=== PATIENT | male | born 1945 | race Native Hawaiian/Other Pacific Islander ===

== ENCOUNTER 2016-05-22 08:02 | Outpatient (CLI) | payer OTHER, MEDICARE ==
[~2016-05-22 08:02] MED LIST: COZAAR100 MG PO; LEVO0.0529 PO; LEVO0.0723 PO; MELOXICAM7.5 MG OR
[2016-05-22 08:12] LABS: PLATELET COUNT 40 K/uL (142-355)
== END 2016-05-22 22:56 | disposition home or self-care (01) ==
LOC: LABW 08:02
PROVIDERS: Internal Medicine Hematology & Oncology
DX: D69.3 Immune thrombocytopenic purpura (principal)
CPT/HCPCS: 36415; 85027

== ENCOUNTER 2016-06-06 07:42 | Outpatient (CLI) | payer OTHER, MEDICARE ==
[2016-06-06 08:00] LABS: PLATELET COUNT 44 K/uL (142-355)
== END 2016-06-06 20:02 | disposition home or self-care (01) ==
LOC: LABW 07:42
PROVIDERS: Internal Medicine Hematology & Oncology
DX: D69.3 Immune thrombocytopenic purpura (principal)
CPT/HCPCS: 36415; 85027

== ENCOUNTER 2016-06-27 08:20 | Outpatient (CLI) | payer OTHER, MEDICARE ==
[2016-06-27 08:42] LABS: PLATELET COUNT 45 K/uL (142-355)
== END 2016-06-27 18:58 | disposition home or self-care (01) ==
LOC: LABW 08:20
PROVIDERS: Internal Medicine Hematology & Oncology
DX: D69.3 Immune thrombocytopenic purpura (principal)
CPT/HCPCS: 36415; 85027

== ENCOUNTER 2016-06-30 17:39 | Emergency (ER) | payer OTHER, MEDICARE ==
[~2016-06-30] VITALS: Ht 177.8 cm; Wt 83.5 kg
[2016-06-30 18:20] VITALS: BP 131/70; TEMP 102.9
[2016-06-30 18:45] LABS: PLATELET COUNT 36 K/uL (142-355)
[2016-06-30 18:55] LABS: POTASSIUM 4.1 mmol/L (3.6-5.2); SODIUM 134 mmol/L (136-145)
== END 2016-06-30 19:02 | disposition home or self-care (01) ==
LOC: ED 17:39
DX: J02.0 Streptococcal pharyngitis (principal)
CPT/HCPCS: 80053; 85027; 87804; 87880; 99283; J0561

== ENCOUNTER 2016-08-09 07:38 | Outpatient (CLI) | payer OTHER, MEDICARE ==
[2016-08-09 08:02] LABS: PLATELET COUNT 44 K/uL (142-355)
[2016-08-09 08:39] LABS: POTASSIUM 4.1 mmol/L (3.6-5.2); SODIUM 135 mmol/L (136-145)
== END 2016-08-09 19:01 | disposition home or self-care (01) ==
LOC: LABW 07:38
PROVIDERS: Internal Medicine Hematology & Oncology
DX: E03.8 Other specified hypothyroidism (principal); I10 Essential (primary) hypertension; Z12.5 Encounter for screening for malignant neoplasm of prostate; D69.3 Immune thrombocytopenic purpura
CPT/HCPCS: 36415; 80053; 80061; 81000; 84153; 84439; 84443; 85027

== ENCOUNTER 2016-08-15 08:59 | Outpatient (CLI) | payer OTHER, MEDICARE | END 2016-08-15 19:04 | disposition home or self-care (01) | LOC: US 08:59 | DX: Z13.6 Encounter for screening for cardiovascular disorders (principal); E03.8 Other specified hypothyroidism ==

== ENCOUNTER 2016-09-27 13:31 | Outpatient (CLI) | payer OTHER, MEDICARE ==
[2016-09-27 14:31] LABS: PLATELET COUNT 38 K/uL (142-355)
== END 2016-09-27 19:50 | disposition home or self-care (01) ==
LOC: LABW 13:31
PROVIDERS: Internal Medicine Hematology & Oncology
DX: D69.3 Immune thrombocytopenic purpura (principal)
CPT/HCPCS: 36415; 85027

== ENCOUNTER 2016-10-22 07:33 | Outpatient (CLI) | payer OTHER, MEDICARE ==
[2016-10-22 07:55] LABS: PLATELET COUNT 46 K/uL (142-355)
== END 2016-10-22 19:09 | disposition home or self-care (01) ==
LOC: LABW 07:33
PROVIDERS: Internal Medicine Hematology & Oncology
DX: D69.3 Immune thrombocytopenic purpura (principal)
CPT/HCPCS: 36415; 85027

== ENCOUNTER 2016-11-22 07:51 | Outpatient (CLI) | payer OTHER, MEDICARE ==
[2016-11-22 09:32] LABS: PLATELET COUNT 28 K/uL (142-355)
== END 2016-11-22 19:13 | disposition home or self-care (01) ==
LOC: LABW 07:51
PROVIDERS: Internal Medicine Hematology & Oncology
DX: D69.3 Immune thrombocytopenic purpura (principal)
CPT/HCPCS: 36415; 85007; 85027

== ENCOUNTER 2016-12-25 07:50 | Outpatient (CLI) | payer OTHER, MEDICARE ==
[2016-12-25 08:25] LABS: PLATELET COUNT 109 K/uL (142-355)
== END 2016-12-25 19:00 | disposition home or self-care (01) ==
LOC: LABW 07:50
PROVIDERS: Internal Medicine Hematology & Oncology
DX: D69.3 Immune thrombocytopenic purpura (principal)
CPT/HCPCS: 36415; 85027

== ENCOUNTER 2017-01-23 07:43 | Outpatient (CLI) | payer OTHER, MEDICARE ==
[2017-01-23 07:55] LABS: PLATELET COUNT 132 K/uL (142-355)
== END 2017-01-23 08:45 | disposition home or self-care (01) ==
LOC: LABW 07:43
PROVIDERS: Internal Medicine Hematology & Oncology
DX: D69.3 Immune thrombocytopenic purpura (principal)
CPT/HCPCS: 36415; 85027

== ENCOUNTER 2017-01-25 07:44 | Outpatient (CLI) | payer OTHER, MEDICARE ==
[2017-01-25 08:05] LABS: POTASSIUM 3.9 mmol/L (3.6-5.2); SODIUM 135 mmol/L (136-145)
== END 2017-01-25 19:07 | disposition home or self-care (01) ==
LOC: LABW 07:44
PROVIDERS: Internal Medicine Hematology & Oncology
DX: D69.3 Immune thrombocytopenic purpura (principal)
CPT/HCPCS: 36415; 80053

== ENCOUNTER 2017-03-25 07:40 | Outpatient (CLI) | payer OTHER, MEDICARE ==
[2017-03-25 07:59] LABS: PLATELET COUNT 122 K/uL (142-355)
[2017-03-25 08:04] LABS: POTASSIUM 3.9 mmol/L (3.6-5.2); SODIUM 136 mmol/L (136-145)
== END 2017-03-25 19:02 | disposition home or self-care (01) ==
LOC: LABW 07:40
PROVIDERS: Internal Medicine Hematology & Oncology
DX: D69.3 Immune thrombocytopenic purpura (principal)
CPT/HCPCS: 36415; 80053; 85027

== ENCOUNTER 2017-04-15 07:52 | Outpatient (CLI) | payer OTHER, MEDICARE ==
[2017-04-15 08:44] LABS: PLATELET COUNT 80 K/uL (142-355)
== END 2017-04-15 19:12 | disposition home or self-care (01) ==
LOC: LABW 07:52
PROVIDERS: Internal Medicine Hematology & Oncology
DX: D69.3 Immune thrombocytopenic purpura (principal)
CPT/HCPCS: 36415; 85027

== ENCOUNTER 2017-05-08 11:35 | Outpatient (CLI) | payer OTHER, MEDICARE ==
[2017-05-08 11:49] LABS: PLATELET COUNT 146 K/uL (142-355)
== END 2017-05-08 21:34 | disposition home or self-care (01) ==
LOC: LABW 11:35
PROVIDERS: Internal Medicine Hematology & Oncology
DX: D69.3 Immune thrombocytopenic purpura (principal)
CPT/HCPCS: 36415; 85027

== ENCOUNTER 2017-05-24 07:55 | Outpatient (CLI) | payer OTHER, MEDICARE ==
[2017-05-24 08:23] LABS: PLATELET COUNT 40 K/uL (142-355)
== END 2017-05-24 19:27 | disposition home or self-care (01) ==
LOC: LABW 07:55
PROVIDERS: Internal Medicine Hematology & Oncology
DX: D69.3 Immune thrombocytopenic purpura (principal)
CPT/HCPCS: 36415; 85027

== ENCOUNTER 2017-05-31 12:15 | Outpatient (CLI) | payer OTHER, MEDICARE ==
[2017-05-31 12:50] LABS: PLATELET COUNT 54 K/uL (142-355)
== END 2017-05-31 21:53 | disposition home or self-care (01) ==
LOC: LABW 12:15
PROVIDERS: Internal Medicine Hematology & Oncology
DX: D69.3 Immune thrombocytopenic purpura (principal)
CPT/HCPCS: 36415; 85027

== ENCOUNTER 2017-06-25 07:46 | Outpatient (CLI) | payer OTHER, MEDICARE ==
[2017-06-25 08:13] LABS: PLATELET COUNT 130 K/uL (142-355)
== END 2017-06-25 19:45 | disposition home or self-care (01) ==
LOC: LABW 07:46
PROVIDERS: Internal Medicine Hematology & Oncology
DX: D69.3 Immune thrombocytopenic purpura (principal)
CPT/HCPCS: 36415; 85027

== ENCOUNTER 2017-07-24 15:41 | Outpatient (CLI) | payer OTHER, MEDICARE ==
[2017-07-24 15:51] LABS: PLATELET COUNT 83 K/uL (142-355)
== END 2017-07-24 19:36 | disposition home or self-care (01) ==
LOC: LABW 15:41
PROVIDERS: Internal Medicine Hematology & Oncology
DX: D69.3 Immune thrombocytopenic purpura (principal)
CPT/HCPCS: 36415; 85027

== ENCOUNTER 2017-08-28 08:17 | Outpatient (CLI) | payer OTHER, MEDICARE ==
[2017-08-28 09:14] LABS: PLATELET COUNT 64 K/uL (142-355)
== END 2017-08-28 21:46 | disposition home or self-care (01) ==
LOC: LABW 08:17
PROVIDERS: Internal Medicine Hematology & Oncology
DX: D69.3 Immune thrombocytopenic purpura (principal)
CPT/HCPCS: 36415; 85027

== ENCOUNTER 2017-09-23 08:18 | Outpatient (CLI) | payer OTHER, MEDICARE ==
[2017-09-23 08:27] LABS: PLATELET COUNT 49 K/uL (142-355)
== END 2017-09-23 19:56 | disposition home or self-care (01) ==
LOC: LABW 08:18
PROVIDERS: Internal Medicine Hematology & Oncology
DX: D69.3 Immune thrombocytopenic purpura (principal)
CPT/HCPCS: 36415; 85027

== ENCOUNTER 2017-10-23 15:44 | Outpatient (CLI) | payer OTHER, MEDICARE ==
[2017-10-23 15:56] LABS: PLATELET COUNT 121 K/uL (142-355)
== END 2017-10-23 20:26 | disposition home or self-care (01) ==
LOC: LABW 15:44
PROVIDERS: Nurse Practitioner Family
DX: D69.3 Immune thrombocytopenic purpura (principal)
CPT/HCPCS: 36415; 85027

== ENCOUNTER 2017-11-14 07:36 | Outpatient (CLI) | payer OTHER, MEDICARE ==
[2017-11-14 08:23] LABS: PLATELET COUNT 160 K/uL (142-355)
== END 2017-11-14 21:14 | disposition home or self-care (01) ==
LOC: LABW 07:36
PROVIDERS: Internal Medicine
DX: I10 Essential (primary) hypertension (principal); Z12.5 Encounter for screening for malignant neoplasm of prostate
CPT/HCPCS: 36415; 80053; 80061; 81000; 84153; 84443; 85027

== ENCOUNTER 2017-12-23 07:58 | Outpatient (CLI) | payer OTHER, MEDICARE ==
[2017-12-23 08:12] LABS: PLATELET COUNT 50 K/uL (142-355)
== END 2017-12-23 19:11 | disposition home or self-care (01) ==
LOC: LABW 07:58
PROVIDERS: Internal Medicine Hematology & Oncology
DX: D69.3 Immune thrombocytopenic purpura (principal)
CPT/HCPCS: 36415; 85027

== ENCOUNTER 2018-03-25 08:01 | Outpatient (CLI) | payer OTHER, MEDICARE ==
[2018-03-25 08:14] LABS: PLATELET COUNT 64 K/uL (142-355)
[2018-03-25 08:25] LABS: POTASSIUM 3.8 mmol/L (3.6-5.2)
== END 2018-03-25 22:20 | disposition home or self-care (01) ==
LOC: LABW 08:01
PROVIDERS: Nurse Practitioner Family
DX: D69.3 Immune thrombocytopenic purpura (principal)
CPT/HCPCS: 36415; 80053; 85027

== ENCOUNTER 2018-05-27 07:57 | Outpatient (CLI) | payer OTHER, MEDICARE ==
[2018-05-27 08:19] LABS: PLATELET COUNT 65 K/uL (142-355)
== END 2018-05-27 20:58 | disposition home or self-care (01) ==
LOC: LABW 07:57
PROVIDERS: Nurse Practitioner Family
DX: D69.3 Immune thrombocytopenic purpura (principal)
CPT/HCPCS: 36415; 85027

== ENCOUNTER 2018-06-26 07:47 | Outpatient (CLI) | payer OTHER, MEDICARE ==
[2018-06-26 08:07] LABS: PLATELET COUNT 60 K/uL (142-355)
== END 2018-06-26 20:19 | disposition home or self-care (01) ==
LOC: LABW 07:47
PROVIDERS: Nurse Practitioner Family
DX: D69.3 Immune thrombocytopenic purpura (principal)
CPT/HCPCS: 36415; 80053; 85027

== ENCOUNTER 2018-08-12 08:05 | Outpatient (CLI) | payer OTHER, MEDICARE ==
[2018-08-12 08:32] LABS: PLATELET COUNT 60 K/uL (142-355)
== END 2018-08-12 23:17 | disposition home or self-care (01) ==
LOC: LABW 08:05
PROVIDERS: Internal Medicine Medical Oncology
DX: D69.3 Immune thrombocytopenic purpura (principal)
CPT/HCPCS: 36415; 85027

== ENCOUNTER 2018-09-29 10:25 | Outpatient (CLI) | payer OTHER, MEDICARE ==
[2018-09-29 10:42] LABS: PLATELET COUNT 66 K/uL (142-355)
== END 2018-09-29 22:21 | disposition home or self-care (01) ==
LOC: LABW 10:25
PROVIDERS: Internal Medicine Medical Oncology
DX: D69.3 Immune thrombocytopenic purpura (principal)
CPT/HCPCS: 36415; 80053; 85027

== ENCOUNTER 2018-11-25 07:54 | Outpatient (CLI) | payer OTHER, MEDICARE ==
[2018-11-25 08:13] LABS: PLATELET COUNT 51 K/uL (142-355)
[2018-11-25 09:31] LABS: POTASSIUM 4.3 mmol/L (3.6-5.2)
== END 2018-11-25 22:24 | disposition home or self-care (01) ==
LOC: LABW 07:54
PROVIDERS: Internal Medicine
DX: I10 Essential (primary) hypertension (principal); E03.8 Other specified hypothyroidism; Z12.5 Encounter for screening for malignant neoplasm of prostate
CPT/HCPCS: 36415; 80053; 80061; 81000; 84153; 84439; 84443; 85027

== ENCOUNTER 2019-01-01 08:10 | Outpatient (CLI) | payer OTHER, MEDICARE ==
[2019-01-01 08:28] LABS: PLATELET COUNT 33 K/uL (142-355)
== END 2019-01-01 22:33 | disposition home or self-care (01) ==
LOC: LABW 08:10
PROVIDERS: Internal Medicine Medical Oncology
DX: D69.3 Immune thrombocytopenic purpura (principal)
CPT/HCPCS: 36415; 80053; 85027

== ENCOUNTER 2019-01-08 07:48 | Outpatient (CLI) | payer OTHER, MEDICARE ==
[2019-01-08 08:19] LABS: PLATELET COUNT 67 K/uL (142-355)
== END 2019-01-08 23:18 | disposition home or self-care (01) ==
LOC: LABW 07:48
PROVIDERS: Internal Medicine Medical Oncology
DX: D69.3 Immune thrombocytopenic purpura (principal)
CPT/HCPCS: 36415; 85027

== ENCOUNTER 2019-01-20 12:26 | Emergency (ER) | payer OTHER, MEDICARE ==
[~2019-01-20] VITALS: Ht 177.8 cm; Wt 79.5 kg
[2019-01-20 12:32] VITALS: TEMP 98.9
[2019-01-20 16:35] VITALS: BP 140/87
== END 2019-01-20 16:39 | disposition home or self-care (01) ==
LOC: ED 12:26
PROC: 0HQ0XZZ Repair Scalp Skin, External Approach (ICD-10-PCS; principal; 2019-01-20)
DX: S01.81XA Laceration without foreign body of other part of head, initial encounter (principal); S00.83XA Contusion of other part of head, initial encounter; R51 Headache; W11.XXXA Fall on and from ladder, initial encounter; Y92.89 Other specified places as the place of occurrence of the external cause
CPT/HCPCS: 99283

== ENCOUNTER 2019-01-29 09:49 | Emergency (ER) | payer OTHER, MEDICARE ==
[~2019-01-29] VITALS: Ht 177.8 cm; Wt 81.6 kg
[2019-01-29 10:55] VITALS: BP 117/72; TEMP 97.8
== END 2019-01-29 10:55 | disposition home or self-care (01) ==
LOC: ED 09:49
DX: Z48.02 Encounter for removal of sutures (principal)

== ENCOUNTER 2019-02-24 07:55 | Outpatient (CLI) | payer OTHER, MEDICARE ==
[2019-02-24 08:23] LABS: PLATELET COUNT 45 K/uL (142-355)
[2019-02-24 08:24] LABS: POTASSIUM 4.2 mmol/L (3.6-5.2)
== END 2019-02-24 18:57 | disposition home or self-care (01) ==
LOC: LABW 07:55
PROVIDERS: Internal Medicine Medical Oncology
DX: D69.3 Immune thrombocytopenic purpura (principal)
CPT/HCPCS: 36415; 80053; 85027

== ENCOUNTER 2019-05-05 07:41 | Outpatient (CLI) | payer OTHER, MEDICARE ==
[2019-05-05 08:24] LABS: PLATELET COUNT 58 K/uL (142-355)
== END 2019-05-05 20:07 | disposition home or self-care (01) ==
LOC: LABW 07:41
PROVIDERS: Internal Medicine Medical Oncology
DX: D69.3 Immune thrombocytopenic purpura (principal)
CPT/HCPCS: 36415; 85027

== ENCOUNTER 2019-06-29 07:33 | Outpatient (CLI) | payer OTHER, MEDICARE ==
[2019-06-29 08:19] LABS: PLATELET COUNT 49 K/uL (142-355)
[2019-06-29 08:29] LABS: POTASSIUM 4.1 mmol/L (3.6-5.2)
== END 2019-06-29 19:49 | disposition home or self-care (01) ==
LOC: LABW 07:33
PROVIDERS: Internal Medicine Medical Oncology
DX: D69.3 Immune thrombocytopenic purpura (principal)
CPT/HCPCS: 36415; 80053; 85027

== ENCOUNTER 2019-10-02 08:48 | Outpatient (CLI) | payer OTHER, MEDICARE ==
[2019-10-02 10:03] LABS: PLATELET COUNT 57 K/uL (142-355)
== END 2019-10-02 19:19 | disposition home or self-care (01) ==
LOC: LABW 08:48
PROVIDERS: Internal Medicine Medical Oncology
DX: D69.3 Immune thrombocytopenic purpura (principal)
CPT/HCPCS: 36415; 85027

== ENCOUNTER 2019-12-28 07:43 | Outpatient (CLI) | payer OTHER, MEDICARE ==
[2019-12-28 08:21] LABS: PLATELET COUNT 81 K/uL (142-355)
== END 2019-12-28 19:06 | disposition home or self-care (01) ==
LOC: LABW 07:43
PROVIDERS: Internal Medicine Medical Oncology
DX: D69.3 Immune thrombocytopenic purpura (principal)
CPT/HCPCS: 36415; 80053; 85027

== ENCOUNTER 2020-03-21 07:46 | Outpatient (CLI) | payer OTHER, MEDICARE ==
[2020-03-21 08:05] LABS: PLATELET COUNT 75 K/uL (142-355)
== END 2020-03-21 23:09 | disposition home or self-care (01) ==
LOC: LABW 07:46
PROVIDERS: ATTEND Nurse Practitioner Adult Health
DX: D69.3 Immune thrombocytopenic purpura (principal)
CPT/HCPCS: 36415; 85027

== ENCOUNTER 2020-05-09 13:32 | Outpatient (CLI) | payer OTHER, MEDICARE | END 2020-05-09 21:11 | disposition home or self-care (01) | LOC: LAB 13:32 | PROVIDERS: ATTEND Internal Medicine | DX: R05 Cough (principal) ==

== ENCOUNTER 2020-07-08 08:11 | Outpatient (CLI) | payer OTHER, MEDICARE ==
[2020-07-08 08:38] LABS: PLATELET COUNT 39 K/uL (142-355)
[2020-07-08 08:43] LABS: POTASSIUM 4.3 mmol/L (3.6-5.2)
== END 2020-07-08 21:11 | disposition home or self-care (01) ==
LOC: LABW 08:11
PROVIDERS: ATTEND Nurse Practitioner Adult Health
DX: D69.3 Immune thrombocytopenic purpura (principal)
CPT/HCPCS: 36415; 80053; 85027

== ENCOUNTER 2021-01-09 11:06 | Outpatient (CLI) | payer OTHER, MEDICARE ==
[2021-01-09 11:44] LABS: PLATELET COUNT 59 K/uL (142-355)
== END 2021-01-09 18:56 | disposition home or self-care (01) ==
LOC: LABW 11:06
PROVIDERS: ATTEND Nurse Practitioner Adult Health
DX: D69.3 Immune thrombocytopenic purpura (principal)
CPT/HCPCS: 36415; 80053; 85027

== ENCOUNTER 2021-02-15 07:53 | Outpatient (CLI) | payer OTHER, MEDICARE ==
[2021-02-15 08:22] LABS: PLATELET COUNT 40 K/uL (142-355)
== END 2021-02-15 20:02 | disposition home or self-care (01) ==
LOC: LABW 07:53
PROVIDERS: ATTEND Internal Medicine Medical Oncology
DX: D69.3 Immune thrombocytopenic purpura (principal)
CPT/HCPCS: 36415; 85027

== ENCOUNTER 2021-03-20 07:52 | Outpatient (CLI) | payer OTHER, MEDICARE ==
[2021-03-20 08:18] LABS: PLATELET COUNT 73 K/uL (142-355)
== END 2021-03-20 21:46 | disposition home or self-care (01) ==
LOC: LABW 07:52
PROVIDERS: ATTEND Internal Medicine Medical Oncology
DX: D69.3 Immune thrombocytopenic purpura (principal)
CPT/HCPCS: 36415; 85027

== ENCOUNTER 2021-05-24 08:34 | Outpatient (CLI) | payer OTHER, MEDICARE ==
[2021-05-24 08:51] LABS: PLATELET COUNT 78 K/uL (142-355)
[2021-05-24 09:14] LABS: POTASSIUM 4.2 mmol/L (3.6-5.2)
== END 2021-05-24 18:54 | disposition home or self-care (01) ==
LOC: LABW 08:34
PROVIDERS: ATTEND Internal Medicine Medical Oncology
DX: D69.3 Immune thrombocytopenic purpura (principal)
CPT/HCPCS: 36415; 80053; 85027

== ENCOUNTER 2021-06-23 11:22 | Outpatient (CLI) | payer OTHER, MEDICARE ==
[2021-06-23 11:41] LABS: PLATELET COUNT 90 K/uL (142-355)
== END 2021-06-23 20:04 | disposition home or self-care (01) ==
LOC: LABW 11:22
PROVIDERS: ATTEND Nurse Practitioner Family
DX: D69.3 Immune thrombocytopenic purpura (principal)
CPT/HCPCS: 36415; 85027

== ENCOUNTER 2021-08-01 12:26 | Outpatient (CLI) | payer OTHER, MEDICARE ==
[2021-08-01 13:22] LABS: PLATELET COUNT 96 K/uL (142-355)
[2021-08-01 13:43] LABS: POTASSIUM 4.1 mmol/L (3.6-5.2)
== END 2021-08-01 18:58 | disposition home or self-care (01) ==
LOC: LAB 12:26
PROVIDERS: ATTEND Internal Medicine
DX: Z00.00 Encounter for general adult medical examination without abnormal findings (principal); I10 Essential (primary) hypertension; E03.8 Other specified hypothyroidism; D69.3 Immune thrombocytopenic purpura; Z12.5 Encounter for screening for malignant neoplasm of prostate; N40.0 Benign prostatic hyperplasia without lower urinary tract symptoms
CPT/HCPCS: 80053; 80061; 81000; 84153; 84439; 84443; 85027

== ENCOUNTER 2021-08-22 10:41 | Outpatient (CLI) | payer OTHER, MEDICARE ==
[2021-08-22 10:58] LABS: PLATELET COUNT 97 K/uL (142-355)
== END 2021-08-22 18:53 | disposition home or self-care (01) ==
LOC: LABW 10:41
PROVIDERS: ATTEND Nurse Practitioner Family
DX: D69.3 Immune thrombocytopenic purpura (principal)
CPT/HCPCS: 36415; 85027

== ENCOUNTER 2021-09-25 10:30 | Outpatient (CLI) | payer OTHER, MEDICARE ==
[2021-09-25 10:47] LABS: PLATELET COUNT 91 K/uL (142-355)
== END 2021-09-25 18:59 | disposition home or self-care (01) ==
LOC: LABW 10:30
PROVIDERS: ATTEND Nurse Practitioner Family
DX: D69.3 Immune thrombocytopenic purpura (principal)
CPT/HCPCS: 36415; 80053; 85027